=== PATIENT | male | born 1975 | race American Indian/Alaskan Native ===

== ENCOUNTER 2017-02-01 19:55 | Emergency (ER) | payer MEDICAID ==
[2017-02-01 20:03] VITALS: BP 144/89
[2017-02-01 20:50] LABS: CHLORIDE,CL 107 mmol/L (101-111); SODIUM,NA 142 mmol/L (135-145)
--- NOTE | 2017-02-02 04:36 | EDM.PDOC ---
ED HPI Trauma - General Chief Complaint: Lower Extremity Injury/Pain Stated Complaint: BY AMBULANCE Source: Reports: Patient, EMS History Limitations: Reports: Intoxication - History of Present Illness INITIAL COMMENTS - FREE TEXT/NARRATIVE: ED via [facility] patient c/o pain to right lower leg, notes hardware removed few days ago. Intoxicated admits 8 beers tonight. Allergies/ADRs: Allergies wool Allergy (Verified 02/01/17 20:03) Hives Home Medications: Ambulatory Orders . [Unable to Verify Home Med List] 02/01/17 [Confirmed 02/01/17] Past Medical History Musculoskeletal History: Reports: Fracture Psychiatric History: Reports: Addiction Social & Family History - Tobacco Use Smoking Status *Q: Current Every Day Smoker Years of Tobacco use: 10 Packs/Tins Daily: 0.2 Second Hand Smoke Exposure: Yes - Recreational Drug Use Recreational Drug Use: No Review of Systems - Review of Systems Review Of Systems: ROS reveals no pertinent complaints other than HPI. Trauma Exam - Physical Exam Exam: See Below Text/Narrative:: Limited visit. Present on patient arrival via ambulance. Patient alert, responding and answering questions appropriately . Dressing adherent to right lower. small old quarter size dried blood, No gross swelling or redness of extremity. While dressing being moistened for inspection patient placed sock back on and demanding to leave. Did sign AMA form, Refused redressing or further inspection of extremity. Left ambulatory gait steady Exam Limited By: Intoxication General Appearance: Reports: alert, no apparent distress, other (intoxicated) Head: Reports: atraumatic, normocephalic Course - Vital Signs Last Recorded V/S: Last Vital Signs Temp 98.6 F 02/01/17 19:57 Pulse 106 H 02/01/17 19:57 Resp 18 02/01/17 19:57 BP 144/89 H 02/01/17 19:57 Pulse Ox 94 L 02/01/17 19:57 - Orders/Labs/Meds Orders: Active Orders 24 hr Category Date Time Status DRUG SCREEN URINE BIORAD [URCHEM] Stat Lab 02/01/17 20:17 Uncollected UA W/MICROSCOPIC [URIN] Stat Lab 02/01/17 20:17 Uncollected Labs: Laboratory Tests 02/01/17 02/01/17 Range/Units 20:25 20:25 WBC 6.7 (5.0-10.0) 10^3/uL RBC 4.62 (4.6-6.2) 10^6/uL Hgb 14.7 (14.0-18.0) g/dL Hct 42.5 (40.0-54.0) % MCV 92.0 (80-100) fL MCH 31.8 (27.0-34.0) pg MCHC 34.6 (33.0-35.0) g/dL Plt Count 198 (150-450) 10^3/uL Neut % (Auto) 48.8 (42.2-75.2) % Lymph % (Auto) 40.7 (20.5-50.1) % [place] % (Auto) 8.9 H (2-8) % Eos % (Auto) 1.3 (1.0-3.0) % Baso % (Auto) 0.3 (0.0-1.0) % Sodium 142 (135-145) mmol/L Potassium 3.3 L (3.6-5.0) mmol/L Chloride 107 (101-111) mmol/L Carbon Dioxide 23.0 (21.0-31.0) mmol/L Anion Gap 15.3 BUN 9 (7-18) mg/dL Creatinine 0.7 (0.6-1.3) mg/dL Est Cr Clr Drug Dosing 140.50 mL/min Estimated GFR (MDRD) > 60 BUN/Creatinine Ratio 12.85 Glucose 127 H (74-105) mg/dL Calcium 8.3 L (8.4-10.2) mg/dl Total Bilirubin 0.5 (0.2-1.0) mg/dL AST 30 (10-42) IU/L ALT 19 (10-60) IU/L Alkaline Phosphatase 66 (42-121) IU/L Total Protein 7.7 (6.7-8.2) g/dl Albumin 4.2 (3.2-5.5) g/dl Globulin 3.5 Albumin/Globulin Ratio 1.20 Ethyl Alcohol 383 mg/dL Departure - Departure Time of Disposition: 20:35 Disposition: Against Medical Advice 07 Condition: undetermined Clinical Impression: Right leg pain, Intoxication Referrals: PCP,Unobtain [Primary Care Provider] - Forms: ED Department Discharge - My Orders Last 24 Hours: My Active Orders 02/01/17 20:17 DRUG SCREEN URINE BIORAD [URCHEM] Stat UA W/MICROSCOPIC [URIN] Stat - Assessment/Plan Last 24 Hours: My Active Orders 02/01/17 20:17 DRUG SCREEN URINE BIORAD [URCHEM] Stat UA W/MICROSCOPIC [URIN] Stat
== END 2017-02-01 20:32 | disposition left against medical advice (07) ==
LOC: DL.ED 19:55
DX: M79.661 Pain in right lower leg (principal); F10.129 Alcohol abuse with intoxication, unspecified; F17.210 Nicotine dependence, cigarettes, uncomplicated; Z91.09 Other allergy status, other than to drugs and biological substances
CPT/HCPCS: 36415; 80053; 85025; 99283; G0480; 99282

== ENCOUNTER 2017-02-08 12:28 | Emergency (ER) | payer SELFPAY | END 2017-02-08 13:05 | disposition left against medical advice (07) | LOC: DL.ED 12:28 | DX: Z53.21 Procedure and treatment not carried out due to patient leaving prior to being seen by health care provider (principal) ==

== ENCOUNTER 2021-05-24 12:12 | Emergency (ER) | payer SELFPAY ==
[2021-05-24 12:45] VITALS: BP 82/54; PULSE 93
--- NOTE | 2021-05-24 13:05 | EDM.PDOC ---
ED HPI GENERAL MEDICAL PROBLEM - General Stated Complaint: STOMACH DRAINED OF FLUID Time Seen by Provider: 05/24/21 12:50 Source of Information: Reports: Patient History Limitations: Reports: No Limitations - History of Present Illness INITIAL COMMENTS - FREE TEXT/NARRATIVE: This 45 yo male patient reports to the ED with increased abdominal fluid and increased abdominal pain. The patient reports he has a history of alcohol use/abuse and has cirrhosis. The patient reports he was in [place] in [place] until yesterday. The patient reports he was supposed to have his abdomen drained yesterday before he left the hospital, but was advised to come to the [facility] if he "fills up". The patient reports he has dialysis in [place] scheduled for tomorrow at 0530. The patient reports his abdominal pain was a 6/10 yesterday at discharge, but is currently an 8/10. The patient reports he has not had any medications today. Onset: Unknown/Unsure Duration: Getting Worse Location: Reports: Abdomen Quality: Reports: Ache, Pressure Severity: Moderate Improves with: Reports: None Worsens with: Reports: None Associated Symptoms: Reports: No Other Symptoms Abdomen Pain Score (Numeric/FACES): 8 - Related Data Allergies Allergy/AdvReac Type Severity Reaction Status Date / Time wool Allergy Hives Verified 05/24/21 12:51 Home Meds: Home Meds Calcium Carbonate [Oyster Shell Calcium] 500 mg PO BID 05/24/21 [History] Folic Acid 1 mg PO DAILY 05/24/21 [History] Magnesium Oxide [Magnesium] 400 mg PO BID 05/24/21 [History] Midodrine 10 mg PO TID 05/24/21 [History] Omeprazole 40 mg PO DAILY 05/24/21 [History] Pentoxifylline 400 mg PO DAILY 05/24/21 [History] Rifaximin [Xifaxan] 550 mg PO BID 05/24/21 [History] Thiamine [Vitamin B-1] 100 mg PO DAILY 05/24/21 [History] Past Medical History HEENT History: Reports: None Cardiovascular History: Reports: Hypertension Respiratory History: Reports: None Gastrointestinal History: Reports: Cirrhosis, Jaundice Genitourinary History: Reports: Other (See Below) Other Genitourinary History: kidney problems on dialysis Musculoskeletal History: Reports: Fracture Neurological History: Reports: None Psychiatric History: Reports: Addiction Endocrine/Metabolic History: Reports: None Hematologic History: Reports: None Immunologic History: Reports: None Oncologic (Cancer) History: Reports: None Dermatologic History: Reports: None - Infectious Disease History Infectious Disease History: Reports: Chicken Pox, TB - Past Surgical History Head Surgeries/Procedures: Reports: None HEENT Surgical History: Reports: None Musculoskeletal Surgical History: Reports: ORIF Other Musculoskeletal Surgeries/Procedures:: right hip Social & Family History - Family History Family Medical History: Unobtainable - Tobacco Use Tobacco Use Status *Q: Never Tobacco User - Caffeine Use Caffeine Use: Reports: Coffee, Soda - Recreational Drug Use Recreational Drug Use: No - Living Situation & Occupation Living situation: Reports: with Family Occupation: Employed ED ROS GENERAL - Review of Systems Review Of Systems: Comprehensive ROS is negative, except as noted in HPI. ED EXAM, GI/ABD - Physical Exam Exam: See Below Exam Limited By: No Limitations General Appearance: Alert, WD/WN, Moderate Distress, Thin Eyes: Bilateral: EOMI (Jaundice) Ears: Normal External Exam, Normal Canal, Hearing Grossly Normal, Normal TMs Nose: Normal Inspection, Normal Mucosa, No Blood Throat/Mouth: Normal Inspection, Normal Lips, Normal Teeth, Normal Gums, Normal Oropharynx, Normal Voice, No Airway Compromise Head: Atraumatic, Normocephalic Neck: Normal Inspection, Supple, Non-Tender, Full Range of Motion Respiratory/Chest: No Respiratory Distress, Lungs Clear, Normal Breath Sounds, No Accessory Muscle Use, Chest Non-Tender Cardiovascular: Normal Peripheral Pulses, Regular Rate, Rhythm, No Edema, No Gallop, No JVD, No Murmur, No Rub GI/Abdominal Exam: Normal Bowel Sounds, Distended, Tender (diffuse) (Male) Exam: Deferred Rectal (Males) Exam: Deferred Back Exam: Normal Inspection, Full Range of Motion, NT Extremities: Normal Inspection, Normal Range of Motion, Non-Tender, Normal Capillary Refill, No Pedal Edema Neurological: Alert, Oriented, CN II-XII Intact, Normal Cognition Psychiatric: Normal Affect, Normal Mood Skin Exam: Jaundice Lymphatic: No Adenopathy Course - Vital Signs Last Recorded V/S: Last Vital Signs Temp 97.9 F 05/24/21 12:43 Pulse 93 05/24/21 12:43 Resp 18 05/24/21 12:43 BP 82/54 L 05/24/21 12:43 Pulse Ox 91 L 05/24/21 12:43 - Orders/Labs/Meds Orders: Active Orders 24 hr Category Date Time Status CULTURE BLOOD [BC] Stat Lab 05/24/21 12:48 Received CULTURE URINE [RM] Stat Lab 05/24/21 14:46 Received LACTIC ACID [CHEM] Routine Lab 05/24/21 15:21 Ordered Sodium Chloride 0.9% [Normal Saline] 1,000 ml Med 05/24/21 13:07 Active IV .BOLUS cefOXitin [Mefoxin] 1 gm Med 05/24/21 16:15 Active Sodium Chloride 0.9% [Normal Saline] 50 ml IV ONETIME metroNIDAZOLE/Normal Saline [Flagyl in NS 500 MG/100 ML Med 05/24/21 16:06 Ordered ] 500 mg Premix Bag 100 bag IV ONETIME Medication Orders Sodium Chloride (Normal Saline) 1,000 mls @ 125 mls/hr IV .BOLUS ONE Stop: 05/24/21 21:06 Last Admin: 05/24/21 13:07 Dose: 125 mls/hr Documented by: VILMA Metronidazole 500 mg/ Premix 100 mls @ 100 mls/hr IV ONETIME ONE Stop: 05/24/21 17:05 Cefoxitin Sodium 1 gm/ Sodium (Chloride) 50 mls @ 100 mls/hr IV ONETIME ONE Stop: 05/24/21 16:44 Labs: Laboratory Tests 05/24/21 05/24/21 05/24/21 Range/Units 12:48 12:48 12:48 WBC 43.7 H* (5.0-10.0) 10^3/uL RBC 2.65 L (4.6-6.2) 10^6/uL Hgb 9.7 L (14.0-18.0) g/dL Hct 28.1 L (40.0-54.0) % MCV 106.0 H D (80-100) fL MCH 36.6 H (27.0-34.0) pg MCHC 34.5 (33.0-35.0) g/dL Plt Count 159 D (150-450) 10^3/uL Neut % (Auto) 87.7 H (42.2-75.2) % Lymph % (Auto) 3.3 L (20.5-50.1) % [place] % (Auto) 7.7 (2-8) % Eos % (Auto) 0.9 L (1.0-3.0) % Baso % (Auto) 0.4 (0.0-1.0) % Add Manual Diff Yes Neutrophils % (Manual) 79 H (42-75) % Band Neutrophils % 12 % Lymphocytes % (Manual) 4 L (20-50) % Atypical Lymphs % 0 % Monocytes % (Manual) 4 (2-8) % Eosinophils % (Manual) 1 (1-3) % Sodium 133 L (136-145) mmol/L Potassium 4.1 (3.5-5.1) mmol/L Chloride 95 L (98-107) mmol/L Carbon Dioxide 24 (21-32) mmol/L Anion Gap 18.1 H (7-13) mEq/L BUN 48 H (7-18) mg/dL Creatinine 5.64 H* (0.70-1.30) mg/dL Est Cr Clr Drug Dosing 16.12 mL/min Estimated GFR (MDRD) 11 BUN/Creatinine Ratio 8.5 (No establ ref range) Glucose 115 H (70-99) mg/dL Lactic Acid (0.4-2.0) mmol/L Calcium 7.8 L (8.5-10.1) mg/dL Magnesium 1.8 (1.8-2.4) mg/dL Total Bilirubin 44.0 H (0.2-1.0) mg/dL AST 137 H (15-37) U/L ALT 38 (16-63) U/L Alkaline Phosphatase 511 H (46-116) U/L Ammonia 26 (11-32) umol/L Total Protein 5.4 L (6.4-8.2) g/dL Albumin 2.3 L (3.4-5.0) g/dL Globulin 3.1 Albumin/Globulin Ratio 0.74 Amylase 244 H (25-115) U/L Lipase 1507 H (73-393) U/L Urine Color (YELLOW) Urine Appearance (CLEAR) Urine pH (5.0-9.0) Ur Specific Palmer (1.005-1.030) Urine Protein (NEGATIVE) Urine Glucose (UA) (NEGATIVE) Urine Ketones (NEGATIVE) Urine Occult Blood (NEGATIVE) Urine Nitrite (NEGATIVE) Urine Bilirubin (NEGATIVE) Urine Urobilinogen (0.2-1.0) mg/dL Ur Leukocyte Esterase (NEGATIVE) Urine RBC /HPF Urine WBC (0-5/HPF) /HPF Ur Epithelial Cells (NOT SEEN) /HPF Amorphous Sediment (NOT SEEN) /HPF Urine Bacteria (0-FEW/HPF) /HPF Urine Mucus (NOT SEEN) /LPF Urine Other Salicylates (2.8-20(Therapeutic)) mg/dL Urine Opiates Screen (NEGATIVE) Ur Oxycodone Screen (NEGATIVE) Urine Methadone Screen (NEGATIVE) Acetaminophen 0 L (10-30 (Therapeutic)) ug/mL Ur Barbiturates Screen (NEGATIVE) U Tricyclic Antidepress (NEGATIVE) Ur Phencyclidine Scrn (NEGATIVE) Ur Amphetamine Screen (NEGATIVE) U Methamphetamines Scrn (NEGATIVE) Urine MDMA Screen (NEGATIVE) U Benzodiazepines Scrn (NEGATIVE) Urine Cocaine Screen (NEGATIVE) U Marijuana (THC) Screen (NEGATIVE) Ethyl Alcohol < 3 (0) mg/dL 05/24/21 05/24/21 05/24/21 Range/Units 12:48 12:48 14:46 WBC (5.0-10.0) 10^3/uL RBC (4.6-6.2) 10^6/uL Hgb (14.0-18.0) g/dL Hct (40.0-54.0) % MCV (80-100) fL MCH (27.0-34.0) pg MCHC (33.0-35.0) g/dL Plt Count (150-450) 10^3/uL Neut % (Auto) (42.2-75.2) % Lymph % (Auto) (20.5-50.1) % [place] % (Auto) (2-8) % Eos % (Auto) (1.0-3.0) % Baso % (Auto) (0.0-1.0) % Add Manual Diff Neutrophils % (Manual) (42-75) % Band Neutrophils % % Lymphocytes % (Manual) (20-50) % Atypical Lymphs % % Monocytes % (Manual) (2-8) % Eosinophils % (Manual) (1-3) % Sodium (136-145) mmol/L Potassium (3.5-5.1) mmol/L Chloride (98-107) mmol/L Carbon Dioxide (21-32) mmol/L Anion Gap (7-13) mEq/L BUN (7-18) mg/dL Creatinine (0.70-1.30) mg/dL Est Cr Clr Drug Dosing mL/min Estimated GFR (MDRD) BUN/Creatinine Ratio (No establ ref range) Glucose (70-99) mg/dL Lactic Acid 2.7 H* (0.4-2.0) mmol/L Calcium (8.5-10.1) mg/dL Magnesium (1.8-2.4) mg/dL Total Bilirubin (0.2-1.0) mg/dL AST (15-37) U/L ALT (16-63) U/L Alkaline Phosphatase (46-116) U/L Ammonia (11-32) umol/L Total Protein (6.4-8.2) g/dL Albumin (3.4-5.0) g/dL Globulin Albumin/Globulin Ratio Amylase (25-115) U/L Lipase (73-393) U/L Urine Color Green (YELLOW) Urine Appearance Slightly cloudy (CLEAR) Urine pH 6.0 (5.0-9.0) Ur Specific Palmer 1.015 (1.005-1.030) Urine Protein 100 H (NEGATIVE) Urine Glucose (UA) 100 H (NEGATIVE) Urine Ketones Trace H (NEGATIVE) Urine Occult Blood Trace-lysed H (NEGATIVE) Urine Nitrite Negative (NEGATIVE) Urine Bilirubin Large H (NEGATIVE) Urine Urobilinogen 1.0 (0.2-1.0) mg/dL Ur Leukocyte Esterase Large H (NEGATIVE) Urine RBC 0-5 /HPF Urine WBC 0-5 (0-5/HPF) /HPF Ur Epithelial Cells Rare (NOT SEEN) /HPF Amorphous Sediment Moderate (NOT SEEN) /HPF Urine Bacteria Few (0-FEW/HPF) /HPF Urine Mucus Rare (NOT SEEN) /LPF Urine Other See note Salicylates < 2.8 L (2.8-20(Therapeutic)) mg/dL Urine Opiates Screen (NEGATIVE) Ur Oxycodone Screen (NEGATIVE) Urine Methadone Screen (NEGATIVE) Acetaminophen (10-30 (Therapeutic)) ug/mL Ur Barbiturates Screen (NEGATIVE) U Tricyclic Antidepress (NEGATIVE) Ur Phencyclidine Scrn (NEGATIVE) Ur Amphetamine Screen (NEGATIVE) U Methamphetamines Scrn (NEGATIVE) Urine MDMA Screen (NEGATIVE) U Benzodiazepines Scrn (NEGATIVE) Urine Cocaine Screen (NEGATIVE) U Marijuana (THC) Screen (NEGATIVE) Ethyl Alcohol (0) mg/dL 05/24/21 Range/Units 14:46 WBC (5.0-10.0) 10^3/uL RBC (4.6-6.2) 10^6/uL Hgb (14.0-18.0) g/dL Hct (40.0-54.0) % MCV (80-100) fL MCH (27.0-34.0) pg MCHC (33.0-35.0) g/dL Plt Count (150-450) 10^3/uL Neut % (Auto) (42.2-75.2) % Lymph % (Auto) (20.5-50.1) % [place] % (Auto) (2-8) % Eos % (Auto) (1.0-3.0) % Baso % (Auto) (0.0-1.0) % Add Manual Diff Neutrophils % (Manual) (42-75) % Band Neutrophils % % Lymphocytes % (Manual) (20-50) % Atypical Lymphs % % Monocytes % (Manual) (2-8) % Eosinophils % (Manual) (1-3) % Sodium (136-145) mmol/L Potassium (3.5-5.1) mmol/L Chloride (98-107) mmol/L Carbon Dioxide (21-32) mmol/L Anion Gap (7-13) mEq/L BUN (7-18) mg/dL Creatinine (0.70-1.30) mg/dL Est Cr Clr Drug Dosing mL/min Estimated GFR (MDRD) BUN/Creatinine Ratio (No establ ref range) Glucose (70-99) mg/dL Lactic Acid (0.4-2.0) mmol/L Calcium (8.5-10.1) mg/dL Magnesium (1.8-2.4) mg/dL Total Bilirubin (0.2-1.0) mg/dL AST (15-37) U/L ALT (16-63) U/L Alkaline Phosphatase (46-116) U/L Ammonia (11-32) umol/L Total Protein (6.4-8.2) g/dL Albumin (3.4-5.0) g/dL Globulin Albumin/Globulin Ratio Amylase (25-115) U/L Lipase (73-393) U/L Urine Color (YELLOW) Urine Appearance (CLEAR) Urine pH (5.0-9.0) Ur Specific Palmer (1.005-1.030) Urine Protein (NEGATIVE) Urine Glucose (UA) (NEGATIVE) Urine Ketones (NEGATIVE) Urine Occult Blood (NEGATIVE) Urine Nitrite (NEGATIVE) Urine Bilirubin (NEGATIVE) Urine Urobilinogen (0.2-1.0) mg/dL Ur Leukocyte Esterase (NEGATIVE) Urine RBC /HPF Urine WBC (0-5/HPF) /HPF Ur Epithelial Cells (NOT SEEN) /HPF Amorphous Sediment (NOT SEEN) /HPF Urine Bacteria (0-FEW/HPF) /HPF Urine Mucus (NOT SEEN) /LPF Urine Other Salicylates (2.8-20(Therapeutic)) mg/dL Urine Opiates Screen Negative (NEGATIVE) Ur Oxycodone Screen Positive H (NEGATIVE) Urine Methadone Screen Negative (NEGATIVE) Acetaminophen (10-30 (Therapeutic)) ug/mL Ur Barbiturates Screen Positive H (NEGATIVE) U Tricyclic Antidepress Negative (NEGATIVE) Ur Phencyclidine Scrn Negative (NEGATIVE) Ur Amphetamine Screen Negative (NEGATIVE) U Methamphetamines Scrn Negative (NEGATIVE) Urine MDMA Screen Negative (NEGATIVE) U Benzodiazepines Scrn Negative (NEGATIVE) Urine Cocaine Screen Negative (NEGATIVE) U Marijuana (THC) Screen Negative (NEGATIVE) Ethyl Alcohol (0) mg/dL Meds: Medications Generic Name Dose Route Start Last Admin Trade Name Freq PRN Reason Stop Dose Admin Sodium Chloride 1,000 mls @ 125 mls/hr 05/24/21 13:07 05/24/21 13:07 Normal Saline IV 05/24/21 21:06 125 mls/hr .BOLUS ONE Administration Metronidazole 500 mg/ Premix 100 mls @ 100 mls/hr 05/24/21 16:06 IV 05/24/21 17:05 ONETIME ONE Cefoxitin Sodium 1 gm/ Sodium 50 mls @ 100 mls/hr 05/24/21 16:15 Chloride IV 05/24/21 16:44 ONETIME ONE - Re-Assessments/Exams Free Text/Narrative Re-Assessment/Exam: 05/24/21 16:18 A call was placed to [facility] ([id number]) and [facility] ([id number]) but neither had a bed available. [facility] did have a bed and accepted the patient at [id number]. Departure - Departure Time of Disposition: 16:19 Disposition: DC/Tfer to [facility] 02 Condition: Serious Clinical Impression: Leukocytosis Qualifiers: Leukocytosis type: unspecified Qualified Code(s): D72.829 - Elevated white blood cell count, unspecified Ascites Qualifiers: Ascites type: due to alcoholic cirrhosis Qualified Code(s): K70.31 - Alcoholic cirrhosis of liver with ascites - Discharge Information *PRESCRIPTION DRUG MONITORING PROGRAM REVIEWED*: Not Applicable *COPY OF PRESCRIPTION DRUG MONITORING REPORT IN PATIENT RAMONA: Not Applicable Forms: Interfacility Transfer EMTALA Care Plan Goals: Discussed the patient's history, examination, lab and CT results with Dr. Elder ([facility]). Dr. Elder accepted the patient for continued evaluation and further management as an inpatient at [facility]. The patient will be transported by [facility]. Sepsis Event Note (ED) - Evaluation Sepsis Screening Result: No Definite Risk - Focused Exam Vital Signs: Vital Signs Temp Pulse Resp BP Pulse Ox 05/24/21 12:43 97.9 F 93 18 82/54 L 91 L - My Orders Last 24 Hours: My Active Orders 05/24/21 12:48 CULTURE BLOOD [BC] Stat 05/24/21 13:07 Sodium Chloride 0.9% [Normal Saline] 1,000 ml IV .BOLUS 05/24/21 14:46 CULTURE URINE [RM] Stat 05/24/21 15:21 LACTIC ACID [CHEM] Routine 05/24/21 16:06 metroNIDAZOLE/Normal Saline [Flagyl in NS 500 MG/100 ML] 500 mg Premix Bag 100 bag IV ONETIME 05/24/21 16:15 cefOXitin [Mefoxin] 1 gm Sodium Chloride 0.9% [Normal Saline] 50 ml IV ONETIME - Assessment/Plan Last 24 Hours: My Active Orders 05/24/21 12:48 CULTURE BLOOD [BC] Stat 05/24/21 13:07 Sodium Chloride 0.9% [Normal Saline] 1,000 ml IV .BOLUS 05/24/21 14:46 CULTURE URINE [RM] Stat 05/24/21 15:21 LACTIC ACID [CHEM] Routine 05/24/21 16:06 metroNIDAZOLE/Normal Saline [Flagyl in NS 500 MG/100 ML] 500 mg Premix Bag 100 bag IV ONETIME 05/24/21 16:15 cefOXitin [Mefoxin] 1 gm Sodium Chloride 0.9% [Normal Saline] 50 ml IV ONETIME
[2021-05-24] MEDS ORDERED: Sodium Chloride 0.9% 1,000 ML IV ONE (13:07)
[2021-05-24 13:47] LABS: ANION GAP 18.1 mEq/L (7-13); CHLORIDE,CL 95 mmol/L (98-107); SODIUM,NA 133 mmol/L (136-145)
[2021-05-24 13:57] LABS: ACETAMINOPHEN 0 ug/mL (10-30 (Therapeutic))
--- NOTE | 2021-05-24 15:09 | CT ---
EXAMINATION: Abdomen Pelvis wo Cont SEX: Male AGE: 45 years CLINICAL HISTORY: 45-year-old 155 pound renal dialysis patient (serum creatinine 5.6) with ABDOMINAL PAIN and jaundice who also has abnormally elevated serum WBC (47,300). Scan technique: Volume acquisition of data emergency unenhanced CT scan abdomen and pelvis obtained with the patient lying supine on the Siemens multislice scanner [place], [place]. All data archived in the PACS system for storage, reformatting axial/sagittal/coronal planes and study. Interpretation: Abnormal. 1. Large volume of intraperitoneal fluid (ASCITES) identified throughout the abdomen. 2. Gallbladder wall abnormally thickened (no discrete intraluminal calcifications). Unenhanced liver, stomach, spleen, pancreas and adrenal glands anatomically correct i.e. negative. 3. Specifically, no abnormal dilatation of intra or extrahepatic biliary ducts. 4. No abdominal or pelvic mass lesion. No abscess. No mesenteric or retroperitoneal lymphadenopathy. No sign of mechanical bowel obstruction or free intraperitoneal air. 5. Normal caliber aortoiliac vessels. Normal reniform size, axis and configuration. No sign of calcifications/obstruction. 6. Right lower lobe atelectasis and small amount of dependent fluid. Large bore catheter SVC/right atrium. 7. Orthopedic nail right hip. Pelvis and lumbar spine otherwise unremarkable.
[2021-05-24] MEDS ORDERED: metroNIDAZOLE/Normal Saline 500 MG in Premix Bag 100 BAG IV ONE (16:06)
== END 2021-05-24 18:12 ==
LOC: DL.ED 12:12
DX: K70.31 Alcoholic cirrhosis of liver with ascites (principal); D72.829 Elevated white blood cell count, unspecified; I10 Essential (primary) hypertension; Z91.048 Other nonmedicinal substance allergy status; Z79.899 Other long term (current) drug therapy
CPT/HCPCS: 36415; 74176; 80053; 80143; 80179; 80305-QW; 80307; 81001; 82140; 82150; 83605; 83690; 83735; 85025; 87040; 87086; 96365; 96367; 99285-25; J0694; J3490; J7030